=== PATIENT | male | born 1980 | race Caucasian/White ===

== ENCOUNTER 2019-10-24 20:56 | Emergency (ER) | payer OTHER ==
[~2019-10-24] VITALS: Ht 175.3 cm; Wt 89.8 kg
[2019-10-24] MEDS ORDERED: NORCO 5-325 TA1 EAC1 PO (22:10)
[2019-10-24 22:46] VITALS: BP 142/87
== END 2019-10-24 22:47 | disposition home or self-care (01) ==
LOC: M.ERS 20:56
DX: S82.62XA Displaced fracture of lateral malleolus of left fibula, initial encounter for closed fracture (principal); W01.0XXA Fall on same level from slipping, tripping and stumbling without subsequent striking against object, initial encounter; Y92.89 Other specified places as the place of occurrence of the external cause; Y93.89 Activity, other specified; Y99.8 Other external cause status